=== PATIENT | male | born 1995 | race Caucasian/White ===

== ENCOUNTER 2018-05-25 22:46 | Emergency (ER) | payer BC, SELFPAY ==
[2018-05-25] MEDS ORDERED: CLINDAMYCIN 900MG/D5W 900 MG/50 ML BAG IV ONE (23:02)
[2018-05-25] MEDS ORDERED: TETANUS & DIPHTHERIA TOX,ADULT 0.5 ML VIAL ONE (23:03)
[2018-05-25 23:39] LABS: Absolute Lymphocytes (CBC) 2.4 K/uL (0.7-4.9); Absolute Monocytes 1.2 K/uL (0.1-1.3); Absolute Neutrophil 8.1 K/uL (1.8-8.0); Basophils % 1.2 % (0-1.3); Eosinophils % 3.4 % (0-4.4); Hematocrit 42.5 % (39.6-49.0); Lymphocytes % 19.9 % (15.3-44.8); MCH 30.9 pg (27.0-35.0); MCV 88.1 fL (80-100); MPV 8.5 fL (7.6-11.3); Monocytes % 9.6 % (3.3-12.3); RBC Red Blood Cell Count 4.82 M/uL (4.33-5.43)
[2018-05-25] MEDS ORDERED: FENTANYL CITR 100 MCG/2 ML ONE (23:50)
[2018-05-25 23:57] LABS: BUN Blood Urea Nitrogen 13 mg/dL (7-18); Bicarbonate 27 mmol/L (21-32); Glucose Level 109 mg/dL (74-106); Sodium Level 140 mmol/L (136-145)
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
[2018-05-26 01:04] VITALS: O2SAT 100
[2018-05-26 01:06] VITALS: BP 138/86
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
== END 2018-05-26 01:00 | disposition short-term general hospital (02) ==
LOC: ER 22:46
DX: S02.609A Fracture of mandible, unspecified, initial encounter for closed fracture (principal); W50.0XXA Accidental hit or strike by another person, initial encounter; Y93.89 Activity, other specified; Y92.9 Unspecified place or not applicable; F17.210 Nicotine dependence, cigarettes, uncomplicated; Z23 Encounter for immunization
CPT/HCPCS: 36415; 70486; 80048; 85025; 90714; 99285; J3010

== ENCOUNTER 2020-12-28 11:55 | Emergency (ER) | payer SELFPAY ==
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
--- NOTE | 2020-12-28 12:22 | EDPHYS ---
Physician Documentation [facility] Name: [place] Age: 25 yrs Sex: Male : 1995 Arrival Date: 12/28/2020 Time: 11:56 Bed 6 Private MD: ED Physician Buck Wild HPI: 12/28 12:15 This 25 yrs old Male presents to ER via Law Enforcement with complaints of jairo Suicidal Ideation. 12:15 The patient presents to the emergency department with upset about a ticket. Onset: The jairo symptoms/episode began/occurred just prior to arrival. Past psychiatric history: Prior diagnosis: no previous psychiatric diagnosis known. Severity of symptoms: At their worst the symptoms were mild in the emergency department the symptoms are unchanged. The patient has not experienced similar symptoms in the past. Historical: - Allergies: 12:03 No Known Allergies; ld1 - Home Meds: 12:03 Zoloft 50 mg Oral tab 1 tab once daily [Active]; ld1 - PMHx: 12:03 Bipolar disorder; Depression; ld1 - Immunization history:: Adult Immunizations not up to date. - Social history:: Smoking status: Patient reports the use of cigarette tobacco products, smokes one-half pack cigarettes per day, Patient uses street drugs, Methamphetamine (Meth) Pt reports using meth this morning. States he has been using meth once daily for a year.. ROS: 12:16 Constitutional: Negative for fever, chills, and weight loss, Eyes: Negative for injury, jairo pain, redness, and discharge, ENT: Negative for injury, pain, and discharge, Neck: Negative for injury, pain, and swelling, Cardiovascular: Negative for chest pain, palpitations, and edema, Respiratory: Negative for shortness of breath, cough, wheezing, and pleuritic chest pain, Abdomen/GI: Negative for abdominal pain, nausea, vomiting, diarrhea, and constipation, Back: Negative for injury and pain, : Negative for injury, bleeding, discharge, and swelling, MS/Extremity: Negative for injury and deformity, Skin: Negative for injury, rash, and discoloration, Neuro: Negative for headache, weakness, numbness, tingling, and seizure, Psych: Negative for depression, anxiety, suicide ideation, homicidal ideation, and hallucinations, Allergy/Immunology: Negative for hives, rash, and allergies, Endocrine: Negative for neck swelling, polydipsia, polyuria, polyphagia, and marked weight changes, Hematologic/Lymphatic: Negative for swollen nodes, abnormal bleeding, and unusual bruising. Exam: 12:16 Constitutional: This is a well developed, well nourished patient who is awake, alert, jairo and in no acute distress. Head/Face: Normocephalic, atraumatic. Eyes: Pupils equal round and reactive to light, extra-ocular motions intact. Lids and lashes normal. Conjunctiva and sclera are non-icteric and not injected. Cornea within normal limits. Periorbital areas with no swelling, redness, or edema. ENT: Nares patent. No nasal discharge, no septal abnormalities noted. Tympanic membranes are normal and external auditory canals are clear. Oropharynx with no redness, swelling, or masses, exudates, or evidence of obstruction, uvula midline. Mucous membranes moist. Neck: Trachea midline, no thyromegaly or masses palpated, and no cervical lymphadenopathy. Supple, full range of motion without nuchal rigidity, or vertebral point tenderness. No Meningismus. Chest/axilla: Normal chest wall appearance and motion. Nontender with no deformity. No lesions are appreciated. Cardiovascular: Regular rate and rhythm with a normal S1 and S2. No gallops, murmurs, or rubs. Normal PMI, no JVD. No pulse deficits. Respiratory: Lungs have equal breath sounds bilaterally, clear to auscultation and percussion. No rales, rhonchi or wheezes noted. No increased work of breathing, no retractions or nasal flaring. Abdomen/GI: Soft, non-tender, with normal bowel sounds. No distension or tympany. No guarding or rebound. No evidence of tenderness throughout. Back: No spinal tenderness. No costovertebral tenderness. Full range of motion. Male : Normal genitalia with no discharge or lesions. Skin: Warm, dry with normal turgor. Normal color with no rashes, no lesions, and no evidence of cellulitis. MS/ Extremity: Pulses equal, no cyanosis. Neurovascular intact. Full, normal range of motion. Neuro: Awake and alert, GCS 15, oriented to person, place, time, and situation. Cranial nerves II-XII grossly intact. Motor strength 5/5 in all extremities. Sensory grossly intact. Cerebellar exam normal. Normal gait. Psych: Awake, alert, with orientation to person, place and time. Behavior, mood, and affect are within normal limits. Vital Signs: 11:58 BP 146 / 108; Pulse 101; Resp 18; Temp 98.5(TE); Pulse Ox 99% on R/A; Weight 89.81 kg; ld1 Height 5 ft. 5 in. (165.10 cm); Pain 0/10; 11:58 Body Mass Index 32.95 (89.81 kg, 165.10 cm) ld1 MDM: 11:56 Patient medically screened. jairo Administered Medications: No medications were administered Disposition: 12/28/20 12:21 Discharged to Home. Impression: Bipolar disorder. - Condition is Stable. - Discharge Instructions: Bipolar Disorder. - Medication Reconciliation Form, Thank You Letter, Antibiotic Education, Prescription Opioid Use form. - Follow up: Private Physician; When: 2 - 3 days; Reason: Recheck today's complaints, Continuance of care, Re-evaluation by your physician. Follow up: Carlos Broderick MD; When: 2 - 3 days; Reason: Recheck today's complaints, Re-evaluation by your physician. - Problem is new. - Symptoms have improved. Signatures: Buck Wild MD MD cha Dibbern, Lauren, RN RN ld1 Corrections: (The following items were deleted from the chart) 12:35 12:21 12/28/2020 12:21 Discharged to Home. Impression: Bipolar disorder. Condition is ld1 Stable. Forms are Medication Reconciliation Form, Thank You Letter, Antibiotic Education, Prescription Opioid Use. Follow up: Private Physician; When: 2 - 3 days; Reason: Recheck today's complaints, Continuance of care, Re-evaluation by your physician. Follow up: Carlos Broderick; When: 2 - 3 days; Reason: Recheck today's complaints, Re-evaluation by your physician. Problem is new. Symptoms have improved. jairo
[2020-12-28 12:42] VITALS: BP 146/108; TEMP 98.5; O2SAT 99
== END 2020-12-28 12:35 | disposition home or self-care (01) ==
LOC: ER 11:55
DX: R45.851 Suicidal ideations (principal); F31.9 Bipolar disorder, unspecified; F17.210 Nicotine dependence, cigarettes, uncomplicated
CPT/HCPCS: 99284

== ENCOUNTER 2023-02-06 20:08 | Emergency (ER) | payer SELFPAY ==
--- OUTSIDE RECORDS SUMMARY | 2023-02-06 20:12 | XMS REPORT | Continuity of Care Document ---
:1995 Author Organization [facility] t Address [address] [place] [address] Care Team Providers Name Role Phone Cecile Makayla Attending Clinician Unavailable Payers Payer Name Policy Type Policy Number Effective Date Expiration Date S ource Problems This patient has no known problems. Allergies, Adverse Reactions, Alerts This patient has no known allergies or adverse reactions. Medications This patient has no known medications. Procedures This patient has no known procedures. Encounters Start End Encounter Admission Attending Care Care Encounter Source Date/Time Date/Time Type Type Clinicians Facility Department ID 2022-07-28 Outpatient [facility] [id number] ID 11:[id number] [facility] 2021-09-16 Outpatient [place] [facility] [id number] Common 12:40:11 Makayla [id number] [facility] 2021-09-16 Outpatient [place] [facility] [id number] Common 11:05:10 Makayla [id number] [facility] Results This patient has no known results.
[2023-02-06] MEDS ORDERED: KETOROLAC 30 MG/ML INJ ONE (20:50)
[2023-02-06] MEDS ORDERED: NA CHLORIDE 0.9% 1,000 ML ONE (20:50)
[2023-02-06 21:07] LABS: Absolute Lymphocytes (CBC) 3.8 K/uL (0.7-4.9); Hematocrit 45.1 % (39.6-49.0); Lymphocytes % 27.6 % (15.3-44.8); MPV 8.7 fL (7.6-11.3); RBC Red Blood Cell Count 5.07 M/uL (4.33-5.43)
[2023-02-06 21:09] LABS: Albumin 3.7 g/dL (3.4-5.0); Bilirubin Total 0.5 mg/dL (0.2-1.0); Potassium 3.6 mEq/L (3.5-5.1); Protein, Total 7.5 g/dL (6.4-8.2)
[2023-02-06 21:21] LABS: Specific Gravity 1.029 (1.005-1.030); Urine Bacteria None Seen /HPF (<20); Urine Bilirubin NEGATIVE (Negative); Urine Blood Negative (Negative); Urine Clarity Clear (Clear); Urine Color Yellow (Yellow); Urine Glucose NEGATIVE (Negative); Urine Mucus 1+ /HPF (None Seen); Urine Protein TRACE (Negative); Urine RBC <5 /HPF (None Seen); Urine Urobilinogen Normal (Normal); Urine pH 5.5 (5.0-7.0)
--- NOTE | 2023-02-06 22:01 | RAD REPORT ---
EXAM DESCRIPTION: CT - Abdomen Pelvis W Contrast - 02/06/2023 9:34 pm CLINICAL HISTORY: right lower abdomen pain COMPARISON: No comparisons TECHNIQUE: Thin cut axial CT imaging of the abdomen and pelvis was performed following intravenous a dministration of 95 mL Isovue 300. Multiplanar reformats were generated and reviewed. All CT scans are performed using dose optimization technique as appropriate and may include automated exposure control or mA/KV adjustment according to patient size. FINDINGS: No suspicious findings in the lung bases. The liver demonstrates diffuse parenchymal hypoattenuation suggesting steatosis. Adrenal glands, sple en, and pancreas show no suspicious findings. Gallbladder and biliary tree are also without suspiciou s finding. Symmetric renal function is seen with no hydronephrosis or suspicious renal mass. No dilated bowel loops or bowel wall thickening. No free air or loculated fluid collections. Left ing uinal hernia containing fat and small volume fluid. Fat stranding along the hernia content, which ext ends into the left lower quadrant. Trace amount of free fluid layering in the pelvis. No suspicious m ass or bulky lymphadenopathy. The urinary bladder is suboptimally distended. No suspicious bony findings. IMPRESSION: Left inguinal hernia containing fat and small volume fluid, with mild fat stranding that extends into the left lower quadrant. Trace free fluid is also seen in the pelvis. This could relate to strangulation of the hernia in the appropriate clinical setting. Please correlate clinically. Other incidental findings as above.
[2023-02-06] MEDS ORDERED: TRAMADOL HCL 50 MG TAB ONE (22:49)
[2023-02-06] MEDS ORDERED: PROMETHAZINE 25 MG TABLET ONE (22:49)
[2023-02-06] MEDS ORDERED: POTASSIUM CL SA 10 MEQ TAB PO ONE (22:50)
--- NOTE | 2023-02-06 22:52 | EDPHYS ---
Physician Documentation [facility] Name: [place] Age: 28 yrs Sex: Male : 1995 Arrival Date: 02/06/2023 Time: 20:08 Bed 7 Private MD: ED Physician Maximiliano Birmingham HPI: 02/06 21:00 This 28 yrs old Male presents to ER via Ambulatory with complaints of Hernia, Ear Pain. cp 21:00 The patient presents with abdominal pain right lower quadrant, right mid abdomen. cp 21:00 Onset: The symptoms/episode began/occurred yesterday. Associated signs and symptoms: cp Pertinent positives: bilateral ear pain. Patient reports he has HX of left side inguinal hernia for the past 5 years. Presents to ED today with concern for ear infection and pain, right side abdomen pain with concern for new hernia. Historical: - PMHx: 20:24 Bipolar disorder; Depression; kd3 - Immunization history:: Adult Immunizations up to date. - Social history:: Smoking status: Patient reports the use of cigarette tobacco products, smokes one pack cigarettes per day. ROS: 21:05 Constitutional: Negative for body aches, chills, fever, poor PO intake. cp 21:05 Eyes: Negative for injury, pain, redness, and discharge. cp 21:05 ENT: Positive for ear pain, Negative for sore throat, difficulty swallowing, difficulty handling secretions. 21:05 Cardiovascular: Negative for chest pain, palpitations. 21:05 Respiratory: Negative for cough, shortness of breath, wheezing. 21:05 Abdomen/GI: Positive for abdominal pain, of the right mid and right lower abdomen, Negative for vomiting, diarrhea, constipation. 21:05 : Negative for urinary symptoms, testicular pain 21:05 Neuro: Negative for altered mental status, dizziness, headache, weakness. 21:05 All other systems are negative. Exam: 21:10 Constitutional: The patient appears in no acute distress, alert, awake, non-toxic, well cp developed, well nourished, obese. 21:10 Head/Face: Normocephalic, atraumatic. cp 21:10 Eyes: Periorbital structures: appear normal, Conjunctiva: normal, no exudate, no injection, Sclera: no appreciated abnormality, Lids and lashes: appear normal, bilaterally. 21:10 ENT: External ear(s): are unremarkable, Ear canal(s): are normal, clear, TM's: erythema, that is moderate, bilaterally, Nose: is normal, Mouth: Lips: moist, Oral mucosa: pink and intact, moist, Posterior pharynx: is normal, airway is patent, no erythema, no exudate. 21:10 Neck: ROM/movement: is normal, is supple, without pain, no range of motions limitations, no meningismus, no nuchal rigidity. 21:10 Chest/axilla: Inspection: normal. 21:10 Cardiovascular: Rate: normal, Rhythm: regular. 21:10 Respiratory: the patient does not display signs of respiratory distress, Respirations: normal, no use of accessory muscles, no retractions, labored breathing, is not present, Breath sounds: are clear throughout, no decreased breath sounds, no stridor, no wheezing. 21:10 Abdomen/GI: Inspection: obese Bowel sounds: active, all quadrants, Palpation: soft, in all quadrants, moderate abdominal tenderness, in the right lower quadrant, rebound tenderness, is not appreciated. 21:10 Back: pain, is absent, ROM is normal. 21:10 Skin: no rash present. 21:10 Neuro: Orientation: to person, place \T\ time. Mentation: is normal, Motor: moves all fours, strength is normal, Sensation: is normal, Gait: is steady, at a normal pace, without difficulty. Vital Signs: 20:24 BP 152 / 93; Pulse 92; Resp 20 S; Temp 97.9; Pulse Ox 95% on R/A; Weight 97.52 kg; ha1 Height 5 ft. 5 in. ; 21:45 BP 127 / 84; Pulse 92; Resp 17; Pulse Ox 96% on R/A; ll3 22:25 BP 126 / 79; Pulse 86; Resp 18 S; Pulse Ox 97% on R/A; ha1 20:24 Body Mass Index 35.78 (97.52 kg, 165.1 cm) ha1 MDM: 20:23 Patient medically screened. cp 21:00 Differential diagnosis: appendicitis, cholecystitis, Cholelithiasis, diverticulitis, cp gastritis, Mesenteric ischemia or infarction, non-specific abd pain, Pyelonephritis, Ureterolithiasis, urinary tract infection. 22:51 Data reviewed: vital signs, nurses notes, lab test result(s), radiologic studies, CT cp scan. 22:51 I considered the following discharge prescriptions or medication management in the emergency department Medications were administered in the Emergency Department. See MAR. Counseling: I had a detailed discussion with the patient and/or guardian regarding: the historical points, exam findings, and any diagnostic results supporting the discharge/admit diagnosis, lab results, radiology results, the need for outpatient follow up, for definitive care, a general surgeon, to return to the emergency department if symptoms worsen or persist or if there are any questions or concerns that arise at home. Response to treatment: the patient's symptoms have markedly improved after treatment, and as a result, I will discharge patient. Special discussion: Based on the patient's Hx, exam, and Dx evaluation, there is no indication for emergent surgery or inpatient Tx. It is understood by the patient/guardian that if the Sx's persist or worsen they need to return immediately for re-evaluation. 02/06 20:29 Order name: CBC with Diff; Complete Time: 22:13 02/06 22:15 Interpretation: Normal except: WBC 13.80; EOSINOPHIL % 4.5; MNA 1.5; EOSA 0.6. 02/06 20:29 Order name: CMP; Complete Time: 22:13 02/06 22:47 Interpretation: Normal except: CL 109. 02/06 20:29 Order name: Lipase; Complete Time: 22:13 02/06 20:29 Order name: Urinalysis w/ reflexes; Complete Time: 22:13 02/06 20:29 Order name: CT Abd/Pelvis - IV Contrast Only; Complete Time: 22:13 02/06 22:48 Interpretation: Report reviewed. 02/06 20:29 Order name: IV Saline Lock; Complete Time: 20:38 02/06 20:29 Order name: Labs collected and sent; Complete Time: 20:38 cp Administered Medications: 20:49 Drug: Ketorolac IVP 15 mg Route: IVP; Site: right antecubital; ha1 21:25 Follow up: Response: No adverse reaction; Pain is decreased ha1 20:50 Drug: NS 0.9% IV 1000 ml Route: IV; Rate: 1 bolus; Site: right antecubital; ha1 22:53 Follow up: Response: No adverse reaction; IV Status: Completed infusion; IV Intake: ha1 1000ml 23:00 Drug: Amoxicillin-Clavulanate PO 875 mg Route: PO; ll3 23:05 Follow up: Response: Medication administered at discharge. 3 Disposition: 02/07 07:31 Co-signature as Attending Physician, Maximiliano Birmingham MD I agree with the assessment sp4 and plan of care. I reviewed the patient's care provided by the Advanced Practice Provider and agree with the diagnosis and treatment plan. Disposition Summary: 02/06/23 22:52 Discharge Ordered Location: Home cp Problem: new cp Symptoms: have improved cp Condition: Stable cp Diagnosis - Abdominal pain, unspecified cp - Unilateral inguinal hernia, without obstruction or gangrene - left cp - Otitis media, unspecified, bilateral cp Followup: cp - With: Sven White MD - When: 2 - 3 days - Reason: hernia repair Discharge Instructions: - Discharge Summary Sheet cp - Abdominal Pain, Adult cp - Otitis Media, Adult cp - Inguinal Hernia, Adult cp Forms: - Medication Reconciliation Form cp - Thank You Letter cp - Antibiotic Education cp - Prescription Opioid Use cp Prescriptions: - Augmentin 875-125 mg Oral Tablet - take 1 tablet by ORAL route every 12 hours for 10 days; 20 tablet; Refills: 0, cp Product Selection Permitted - Ibuprofen 800 mg Oral Tablet - take 1 tablet by ORAL route every 8 hours As needed take with food; 30 tablet; cp Refills: 0, Product Selection Permitted Signatures: Dispatcher [employer] EDBuck Savage PA PA cp Matias Lowry RN RN ll3 Macy Young RN RN kd3 Isabelle Mckeon RN RN ha1 Potepalov, Sergey, MD MD sp4
--- NOTE | 2023-02-06 22:52 | ER ---
Nurse's Notes [facility] Name: [place] Age: 28 yrs Sex: Male : 1995 Arrival Date: 02/06/2023 Time: 20:08 Bed 7 Private MD: Diagnosis: Abdominal pain, unspecified;Unilateral inguinal hernia, without obstruction or gangrene-left;Otitis media, unspecified, bilateral Presentation: 02/06 20:22 Chief complaint: Patient states: I am having a lot of pain. I feel like I have had kd3 drainage coming out of both of my ears with dizziness and blurred vision for about 2 days. I have been pouring peroxide in my ears to try and get it to be better but it isn't going away. And i just found out that i have hernia's. One in my groin and one in my abdomen. I looked up the symptoms and i have had them for about 5 years. Coronavirus screen: Vaccine status: Patient reports receiving the 2nd dose of the covid vaccine. Ebola Screen: No symptoms or risks identified at this time. Initial Sepsis Screen: Does the patient meet any 2 criteria? No. Patient's initial sepsis screen is negative. Does the patient have a suspected source of infection? No. Patient's initial sepsis screen is negative. Risk Assessment: Do you want to hurt yourself or someone else? Patient reports no desire to harm self or others. Onset of symptoms was February 06, 2023. 20:22 Method Of Arrival: Ambulatory kd3 20:22 Acuity: FALGUNI 3 kd3 Triage Assessment: 20:24 General: Appears in no apparent distress. Behavior is calm, cooperative. Pain: kd3 Complains of pain in right ear, left ear and abdomen. EENT: Reports pain in left ear and right ear. Historical: - PMHx: 20:24 Bipolar disorder; Depression; kd3 - Immunization history:: Adult Immunizations up to date. - Social history:: Smoking status: Patient reports the use of cigarette tobacco products, smokes one pack cigarettes per day. Screenin:19 [facility] ED Fall Risk Assessment (Adult) History of falling in the last 3 months, ha1 including since admission No falls in past 3 months (0 pts) Confusion or Disorientation No (0 pts) Intoxicated or Sedated No (0 pts) Impaired Gait No (0 pts) Mobility Assist Device Used No (0 pt) Altered Elimination No (0 pt) Score/Fall Risk Level 0 - 2 = Low Risk Oriented to surroundings, Maintained a safe environment, Educated pt \T\ family on fall prevention, incl call for assistance when getting out of bed, Hourly rounding (assess needs \T\ fall precautionary measures) done. 20:27 Abuse screen: Denies threats or abuse. Denies injuries from another. Nutritional ha1 screening: No deficits noted. Tuberculosis screening: No symptoms or risk factors identified. Assessment: 20:25 General: Appears uncomfortable, Behavior is calm, cooperative. Pain: Complains of pain ha1 in bilateral ear Pain does not radiate. Pain currently is 7 out of 10 on a pain scale. Quality of pain is described as throbbing. Neuro: Level of Consciousness is awake, alert, obeys commands, Oriented to person, place, time, situation. Cardiovascular: Patient's skin is warm and dry. Respiratory: Airway is patent Respiratory effort is even, unlabored, Respiratory pattern is regular, symmetrical. GI: Abdomen is round non-distended, Reports pain on the right lower quadrant due to a possible hernia. : No signs and/or symptoms were reported regarding the genitourinary system. EENT: Ear canal w/ drainage noted from right ear. Derm: Skin is pink, warm \T\ dry. Musculoskeletal: Circulation, motion, and sensation intact. Range of motion: intact in all extremities. 21:25 Reassessment: Patient and/or family updated on plan of care and expected duration. Pain ha1 level reassessed. Patient is alert, oriented x 3, equal unlabored respirations, skin warm/dry/pink. 22:25 Reassessment: Patient and/or family updated on plan of care and expected duration. Pain ha1 level reassessed. Patient is alert, oriented x 3, equal unlabored respirations, skin warm/dry/pink. Patient states symptoms have improved. Vital Signs: 20:24 BP 152 / 93; Pulse 92; Resp 20 S; Temp 97.9; Pulse Ox 95% on R/A; Weight 97.52 kg; ha1 Height 5 ft. 5 in. ; 21:45 BP 127 / 84; Pulse 92; Resp 17; Pulse Ox 96% on R/A; ll3 22:25 BP 126 / 79; Pulse 86; Resp 18 S; Pulse Ox 97% on R/A; ha1 20:24 Body Mass Index 35.78 (97.52 kg, 165.1 cm) ha1 ED Course: 20:11 Patient arrived in ED. ja2 20:16 Buck Vyas PA is PHCP. cp 20:16 Maximiliano Birmingham MD is Attending Physician. cp 20:19 Patient has correct armband on for positive identification. Bed in low position. Call ha1 light in reach. Side rails up X 1. 20:24 Triage completed. kd3 20:25 Arm band placed on right wrist. kd3 20:38 CBC with Diff Sent. ha1 20:38 CMP Sent. ha1 20:39 Lipase Sent. ha1 21:36 CT Abd/Pelvis - IV Contrast Only In Process Unspecified. EDMS 22:51 Sven White MD is Referral Physician. cp 23:06 No provider procedures requiring assistance completed. IV discontinued, intact, ll3 bleeding controlled, No redness/swelling at site. Pressure dressing applied. Administered Medications: 20:49 Drug: Ketorolac IVP 15 mg Route: IVP; Site: right antecubital; ha1 21:25 Follow up: Response: No adverse reaction; Pain is decreased ha1 20:50 Drug: NS 0.9% IV 1000 ml Route: IV; Rate: 1 bolus; Site: right antecubital; ha1 22:53 Follow up: Response: No adverse reaction; IV Status: Completed infusion; IV Intake: ha1 1000ml 23:00 Drug: Amoxicillin-Clavulanate PO 875 mg Route: PO; ll3 23:05 Follow up: Response: Medication administered at discharge. ll3 Medication: 23:06 VIS not applicable for this client. ll3 Intake: 22:53 IV: 1000ml; Total: 1000ml. ha1 Outcome: 22:52 Discharge ordered by . cp 23:06 Discharged to home ambulatory. ll3 23:06 Condition: stable 23:06 Discharge instructions given to patient, Instructed on discharge instructions, follow up and referral plans. medication usage, Demonstrated understanding of instructions, follow-up care, medications, Prescriptions given X 2. 23:06 Patient left the ED. ll3 Signatures: Dispatcher [employer] EDMO Buck Vyas PA PA cp Alexander, Jessica ja2 Loubet, Lynsea, RN RN ll3 Macy Young RN RN kd3 Isabelle Mckeon, HECTOR RN ha1 Corrections: (The following items were deleted from the chart) 20:25 20:24 BP 152 / 93; Pulse 110bpm; Resp 20bpm; Spontaneous; Pulse Ox 95% RA; Temp 97.9F; ha1 97.52 kg; Height 5 ft. 5 in.; BMI: 35.7; ha1
[2023-02-06] MEDS ORDERED: AMOX/K CLAV 875 MG TAB ONE (23:06)
[2023-02-06 23:12] VITALS: TEMP 97.9
[2023-02-06 23:15] VITALS: BP 126/79; O2SAT 97
== END 2023-02-06 23:06 | disposition home or self-care (01) ==
LOC: ER 20:08
DX: K40.90 Unilateral inguinal hernia, without obstruction or gangrene, not specified as recurrent (principal); H66.93 Otitis media, unspecified, bilateral
CPT/HCPCS: 36415; 74177; 80053; 81001; 83690; 85025; 96361; 96374; 99284; J7030; Q0169; Q9967

== ENCOUNTER 2023-02-25 07:32 | Day surgery (SDC) | payer OTHER, SELFPAY ==
[2023-02-25] MEDS ORDERED: Ringers Lactate 1,000 ML IV ONE (08:05)
[2023-02-25] MEDS ORDERED: CEFAZOLIN SODIUM 2 GM/VIAL ONE (08:05)
[2023-02-25] MEDS ORDERED: LIDOCAINE HCL/EPINEPHRINE 20 ML MDV ONE (08:52)
[2023-02-25] MEDS ORDERED: BUPIVACAINE 0.25% PF 30 ML VIAL ONE (08:52)
[2023-02-25] MEDS ORDERED: FENTANYL CITR 100 MCG/2 ML ONE ×2 (09:37→10:16)
[2023-02-25] MEDS ORDERED: KETOROLAC 30 MG/ML INJ ONE (09:37)
[2023-02-25] MEDS ORDERED: ONDANSETRON 4 MG/2 ML VIAL ONE (09:37)
[2023-02-25] MEDS ORDERED: MIDAZOLAM HCL 2 MG/2 ML INJ ONE (09:37)
[2023-02-25] MEDS ORDERED: LIDOCAINE 2% MPF 5 ML VIAL ONE (09:37)
[2023-02-25] MEDS ORDERED: dexAMETHasone 10 MG/ML VIAL ONE (09:37)
[2023-02-25] MEDS ORDERED: propofoL 200 MG/20 ML VIAL IV ONE (09:39)
[2023-02-25] MEDS ORDERED: Phenylephrine HCl 10 MG/ML 1 ML VIAL ONE (11:28)
[2023-02-25] MEDS ORDERED: GLYCOPYRROLATE 0.2 MG/ML SYR ONE (11:29)
[2023-02-25] MEDS ORDERED: NS 0.9% VIAL 10 ML ONE (11:29)
--- NOTE | 2023-02-25 11:35 | P.OP ---
Preoperative diagnosis: LEFT inguinal hernia Postoperative diagnosis: LEFT inguinal hernia Primary procedure: Open LEFT inguinal hernia repair with mesh Anesthesia: GETA Local Estimated blood loss: ~ 5cc Specimen: Hernia Sack Findings: hernia sac to scrotum, thick vas, scarred cord structures Complications: None Implants: Bard Medium Perfix Plug and Patch Hernia System Transferred to: Recovery Room Condition: Good
[2023-02-25] MEDS ORDERED: HYDROCODONE/APAP 10/325 TAB ONE (12:54)
[2023-02-25 13:46] VITALS: BP 114/74; TEMP 97.2; O2SAT 100
--- NOTE | 2023-02-26 00:12 | OP ---
Date of Procedure: 02/25/2023 Surgeon: Lencho Faustin MD, Preoperative Diagnosis: Left inguinal hernia. Postoperative Diagnosis: Left inguinal hernia. Procedure Performed: Open left inguinal hernia repair with mesh. Anesthesia: General endotracheal plus local with 0.25% Marcaine. Estimated Blood Loss: Less than 5 cc. Specimen: Hernia sac. Findings: 1.Extensive indirect hernia extending down along the spermatic cord structures, extending all the wa y up to the scrotum and testicle. 2.Significant scar tissue between the vas deferens and the spermatic cord structures. 3.Significantly thickened vas deferens and its entire length palpable. 4.Incarcerated omental tissue extending all the way through the hernia sac to the level of the scrot um. 5.Hernia sac had multiple small outpouchings and was bilobed around the spermatic cord structures. Complications: None immediate. Implants: Bard medium PerFix plug and patch hernia repair system. Disposition: The patient was transferred to the recovery room in good condition. Procedure In Detail: After informed consent was obtained from the patient preoperatively, I had disc ussed the risks, benefits, and alternatives to repair his left inguinal hernia, what the patient stat es he had had for multiple years prior to his presentation. He states that the hernia continued to g et larger and worsening pain extending to the scrotum with pain in the leg area, scrotal area, and le ft abdomen with burning sensation at times in the inguinal region. The bulge got significantly bigge r and as such, he opted for surgical intervention. I had seen the patient in the morning and discuss ed the risks, benefits, and alternatives of the open inguinal hernia repair including, but not limite d to, bleeding, infection, damage to surrounding tissues, need for further operation procedures, trou ble with mesh, testicular loss, sexual dysfunction, urinary retention, trouble in the perioperative p eriod with related anesthesia, heart attack, strokes, blood clots, and other unforeseen complications in the perioperative period. The patient agreed to proceed as indicated. Procedure In Detail: The patient was prepped and draped in the usual sterile fashion. After adequat e anesthesia was achieved, I made a linear incision down to the left pubic region down to subcutaneou s tissues. After appropriately anesthetizing the skin with a 15 blade, I dissected through the subcu taneous tissues down to Camper's fat. I used electrocautery to dissect down through Camper's fat and Cris's fascia to expose the external oblique aponeurosis. This was opened sharply with a 15 blade and opened in its entirety using Metzenbaum scissors. Spermatic cord and structures were noted at t his time to be in close apposition to the hernia sac. It was emanating from the medial aspect, consi stent with indirect inguinal hernia. Encircling the spermatic cord and structures were quite challen ging as the hernia sac extended all the way down into the scrotum. There was significant thickened s car tissue between the hernia sac and the spermatic cord and structures. I encircled all the structu res at this point, including the spermatic cord and structures and began dissecting free the hernia s ac from the spermatic cord and structures with meticulous dissection using predominantly sharp dissec tion with intermittent use of minimal electrocautery. I continued to dissect off the spermatic cord and structures and palpated the spermatic cord and structures including the vascular supply and the v as deferens. The vas deferens was found to be quite thickened and fibrotic extending all the way fro m the superior aspect of the testicle which was palpated, all the way back to the deep inguinal ring. At this point, the dissection continued down to separate the hernia sac from the spermatic cord and structures. At this point, I opened the hernia sac and returned significant amount of intraperitone al adipose tissue consistent with omentum into the normal anatomic preperitoneal space. At this poin t, I sized the hernia defect in the deep inguinal ring and brought the medium Bard PerFix plug and pa tch repair system, hydrated it appropriately, secured in a parachute-type fashion, 2-0 PDS sutures an d placed in the preperitoneal space. At this point, I secured it to the ring using 3 interrupted 2-0 PDS sutures around the ring of the deep inguinal ring. I then closed the site. I then ligated the hernia sac and sent it off for pathologic examination. I then closed the hernia sac using interrupte d 3-0 Vicryl sutures over the top of the repair. At this point, the area was copiously irrigated. T he hernia was repaired at this point with the plug. I then inspected the area once again, the testic le was inspected at this point and appeared well vascularized at this time without any other findings . I, at this point, irrigated the area once again. No hemostat was required. I sized the hernia pa tc by trimming it appropriately and placed it on the floor of the inguinal canal, securing it medial ly on the pubic tubercle and to the internal oblique aponeurosis and the undersurface of the inguinal ligament. At this point, I trimmed the mesh appropriately and the spermatic cord and structures wer e palpated once again, ensuring the ring was not too tight at the deep inguinal ring. I then irrigat ed the area once again and closed the external oblique aponeurosis using a running 3-0 Vicryl suture. Good apposition of the tissues. I then closed the Camper's fat and Cris's fascia using interrupt ed 3-0 Vicryl sutures after irrigating once again, in an interrupted fashion. I then closed the deep dermal plane using the same said 3 Vicryl sutures in interrupted fashion. The subcuticular layer wa s closed using a 4-0 Monocryl in a running fashion. Dermabond was placed over top. The patient nora rated the procedure well without evidence of complication and transferred to PACU in good condition. All counts were correct at the end of the case. EVON/MICHELLE Voice ID: [id number] Report ID: [id number]
== END 2023-02-25 12:55 | disposition home or self-care (01) ==
LOC: OR 07:32
PROVIDERS: ATTEND Surgery
PROC: 0YU60JZ Supplement Left Inguinal Region with Synthetic Substitute, Open Approach (ICD-10-PCS; principal; 2023-02-25 10:45)
DX: K40.30 Unilateral inguinal hernia, with obstruction, without gangrene, not specified as recurrent (principal)
CPT/HCPCS: 88302; 49505; A4216; J2704; J2370; J2001; J2250; J3010 ×2; J1100; J2405; J7120

== ENCOUNTER 2023-03-01 10:50 | Emergency (ER) | payer OTHER ==
--- OUTSIDE RECORDS SUMMARY | 2023-03-01 10:53 | XMS REPORT | Continuity of Care Document ---
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 Allergies, Adverse Reactions, Alerts This patient has no known allergies or adverse reactions. Social History Social Habit Start Date Stop Date Quantity Comments Source Gender identity Cherelle abdul - External Sexual orientation Cherelle Grimes - External History of tobacco Cigarette Smoker Cherelle Grimes use - External History of Social 2023-02-14 2023-02-14 Cherelle Grimes function 00:00:00 00:00:00 - External Cigarettes smoked 2023-02-14 2023-02-14 Cherelle Grimes current (pack per 00:00:00 00:00:00 - Exter nal day) - Reported Cigarette 2023-02-14 2023-02-14 Cherelle Grimes pack-years 00:00:00 00:00:00 - External Tobacco use and 2023-02-14 2023-02-14 Smokeless tobacco Osmani Grimes exposure 00:00:00 00:00:00 non-user - External Alcohol intake 2023-02-14 2023-02-14 Ex-drinker Cherelle hays 00:00:00 00:00:00 (finding) - External Sex Ass[birth year] At [birth year] Cherelle abdul 00:00:00 00:00:00 - External Smoking Status Start Date Stop Date Source Smokes tobacco daily 2023-02-14 00:00:00 Cherelle Grimes - External Medications Ordered Filled Start Stop Current Ordering Indication Dosage Frequency Signature Comments Components Source Medication Medication Date Date Medication? Clinician (SIG) Name Name Ibuprofen Yes [id number] TAKE 1 Osmani lsey (MOTRIN) 02-14 TABLET BY Seybol d 800 MG oral 00:00: MOUTH - Tablet 00 EVERY 8 Externa HOURS l NEEDED FOR PAIN WITH FOOD Ibuprofen No TAKE 1 Kelse y (MOTRIN) 619 02-14 TABLET BY Seybo ld 800 MG oral 00:00: 00:00 MOUTH - Tablet 00 :00 EVERY 8 Externa HOURS l NEEDED FOR PAIN WITH FOOD Vital Signs Vital Name Observation Time Observation Value Comments Source Systolic blood 2023-02-14 15:57:00 136 mm[Hg] Cherelle Eddyybold - pressure External Diastolic blood 2023-02-14 15:57:00 79 mm[Hg] Jeffrey abraham Seybold - pressure External Heart rate 2023-02-14 15:57:00 86 /min Cherelle prattbowaylon - External Body temperature 2023-02-14 15:57:00 37.06 Latasha Cherie pratt Seybliana - External Respiratory rate 2023-02-14 15:57:00 14 /min Cherie pratt Seybold - External Body height 2023-02-14 15:57:00 165.1 cm Cherelle prattbowaylon - External Body weight 2023-02-14 15:57:00 99.791 kg Cherelle prattbowaylon - External BMI 2023-02-14 15:57:00 36.61 kg/m2 Cherelle prattbowaylon - External Oxygen saturation in 2023-02-14 15:57:00 99 /min Cherelle Grimes - Arterial blood by External Pulse oximetry Procedures This patient has no known procedures. Encounters Start End Encounter Admission Attending Care Care Encounter Source Date/Time Date/Time Type Type Clinicians Facility Department ID 2022-07-28 Outpatient [facility] [id number] [place] 11:21:12 [id number] [facility] 2021-09-16 Outpatient ARELI Huber [facility] [id number] [place] 12:40:11 Makayla [id number] 2021-09-[address] CecileSLY [facility] [id number] Common 11:05:10 Makayla [id number] 2023-03-09 2023-03-09 Outpatient CHERELLE HERNANDEZ [id number] Cherelle 10:00:00 10:00:00 WILL hoyt 2023-02-14 2023-02-14 Outpatient CHERELLE GREY [id number] Cherelle 11:15:00 11:15:00 NIKKI hoyt Results This patient has no known results.
[2023-03-01 11:14] LABS: Absolute Lymphocytes (CBC) 3.3 K/uL (0.7-4.9); Lymphocytes % 18.8 % (15.3-44.8); MPV 8.7 fL (7.6-11.3); RBC Red Blood Cell Count 5.34 M/uL (4.33-5.43)
[2023-03-01 11:31] LABS: Potassium 3.8 mEq/L (3.5-5.1)
[2023-03-01] MEDS ORDERED: NA CHLORIDE 0.9% 1,000 ML ONE (11:58)
--- NOTE | 2023-03-01 12:33 | RAD REPORT ---
EXAM DESCRIPTION: US - Scrotum Testicles - 03/01/2023 12:07 pm CLINICAL HISTORY: testicular pain Pain and swelling. COMPARISON: PELVIS dated 09/21/2012 FINDINGS: The right testicle 4.4 x 2.7 x 2.1 cm. No intratesticular masses or evidence of testicular torsion. The left testicle 3.5 x 3.3 x 2.7 cm.. No intratesticular masses or evidence of testicular torsion. Both epididymides are normal in size and appearance. Mild bilateral scrotal fluid. Significant scrotal edema. IMPRESSION: No acute testicular finding. Mild scrotal edema is noted.
[2023-03-01 12:47] LABS: Albumin 3.5 g/dL (3.4-5.0); Bilirubin Direct 0.2 mg/dL (0-0.2); Bilirubin Indirect, Calculated 0.6 mg/dL (0.2-0.8); Bilirubin Total 0.8 mg/dL (0.2-1.0); Protein, Total 7.8 g/dL (6.4-8.2)
[2023-03-01 12:51] LABS: Protime INR 0.99
--- NOTE | 2023-03-01 13:29 | ER ---
Nurse's Notes [facility] Name: [place] Age: 28 yrs Sex: Male : 1995 Arrival Date: 03/01/2023 Time: 10:50 Bed 4 Private MD: Diagnosis: Left testicular pain;Scrotal swelling;Scrotal contusion Presentation: 03/01 10:53 Chief complaint: Patient states: L testicular swelling and bruising that began after ss hernia repair surgery on Tuesday. Coronavirus screen: Client denies travel out of the [place] in the last 14 days. Ebola Screen: Patient denies exposure to infectious person. Patient denies travel to an Ebola-affected area in the 21 days before illness onset. Initial Sepsis Screen: Does the patient meet any 2 criteria? No. Patient's initial sepsis screen is negative. Does the patient have a suspected source of infection? No. Patient's initial sepsis screen is negative. Risk Assessment: Do you want to hurt yourself or someone else? Patient reports no desire to harm self or others. Onset of symptoms was February 28, 2023. 10:53 Method Of Arrival: EMS: [facility] 10:53 Acuity: FALGUNI 3 ss Historical: - Allergies: 11:00 No Known Allergies; ss - Home Meds: 11:00 None [Active]; ss - PMHx: 11:00 Bipolar disorder; Depression; ss - PSHx: 11:00 Hernia repair; ss - Immunization history:: Client reports receiving the 2nd dose of the Covid vaccine. - Social history:: Smoking status: Patient reports the use of cigarette tobacco products, smokes one-half pack cigarettes per day. Screenin:11 [facility] ED Fall Risk Assessment (Adult) History of falling in the last 3 months, kc6 including since admission No falls in past 3 months (0 pts) Confusion or Disorientation No (0 pts) Intoxicated or Sedated No (0 pts) Impaired Gait No (0 pts) Mobility Assist Device Used No (0 pt) Altered Elimination No (0 pt) Score/Fall Risk Level 0 - 2 = Low Risk Oriented to surroundings, Maintained a safe environment, Educated pt \T\ family on fall prevention, incl call for assistance when getting out of bed, Assessed \T\ reinforced patient's understanding of fall precautions, Hourly rounding (assess needs \T\ fall precautionary measures) done. Abuse screen: Denies threats or abuse. Denies injuries from another. Nutritional screening: No deficits noted. Tuberculosis screening: No symptoms or risk factors identified. Assessment: 11:10 General: Appears in no apparent distress. comfortable, Behavior is calm, cooperative, kc6 appropriate for age. Pain: Complains of pain in left testicle Pain currently is 6 out of 10 on a pain scale. Neuro: Level of Consciousness is awake, alert, obeys commands, Oriented to person, place, time, situation, Appropriate for age. Cardiovascular: Capillary refill < 3 seconds. Respiratory: Airway is patent Trachea midline Respiratory effort is even, unlabored, Respiratory pattern is regular, symmetrical. GI: No signs and/or symptoms were reported involving the gastrointestinal system. : No signs and/or symptoms were reported regarding the genitourinary system. Derm: No signs and/or symptoms reported regarding the dermatologic system. Skin is intact, is healthy with good turgor, Skin is pink, warm \T\ dry. 12:10 Reassessment: Patient appears in no apparent distress at this time. No changes from kc6 previously documented assessment. Patient and/or family updated on plan of care and expected duration. Pain level reassessed. Patient is alert, oriented x 3, equal unlabored respirations, skin warm/dry/pink. Vital Signs: 10:53 BP 144 / 98; Pulse 106; Resp 16; Temp 97.9; Pulse Ox 98% on R/A; Weight 95.25 kg; ss Height 5 ft. 5 in. ; Pain 7/10; 12:24 BP 129 / 91; Pulse 91; Resp 16 S; Pulse Ox 99% on R/A; Pain 5/10; kc6 10:53 Body Mass Index 34.95 (95.25 kg, 165.1 cm) ss 10:53 Pain Scale: Adult ss 12:24 Pain Scale: Adult kc6 ED Course: 10:52 Patient arrived in ED. ss 10:52 Hunter Cam DO is Attending Physician. ms3 11:00 Triage completed. ss 11:00 Arm band placed on right wrist. ss 11:09 Adriane Ni, HECTOR is Primary Nurse. kc6 11:10 BMP Sent. kc6 11:10 CBC with Diff Sent. kc6 11:10 Inserted saline lock: 20 gauge in right wrist, using aseptic technique. Blood collected.kc6 11:11 Patient has correct armband on for positive identification. Placed in gown. Bed in low kc6 position. Call light in reach. Side rails up X 1. 12:05 Scrotum Testicles US In Process Unspecified. EDMS 12:23 Inserted saline lock: 20 gauge in left antecubital area, using aseptic technique. Blood kc6 collected. 13:28 Lencho Faustin MD is Referral Physician. ms3 14:19 No provider procedures requiring assistance completed. IV discontinued, intact, ss bleeding controlled, No redness/swelling at site. Pressure dressing applied. Administered Medications: 12:23 Drug: NS 0.9% IV 1000 ml Route: IV; Rate: 1000 ml; Site: left antecubital; kc6 Outcome: 13:29 Discharge ordered by . ms3 14:19 Discharged to home ambulatory. ss 14:19 Condition: good 14:19 Discharge instructions given to patient, family, Instructed on discharge instructions, follow up and referral plans. medication usage, Demonstrated understanding of instructions, follow-up care, medications, Prescriptions given X 2. 14:19 Patient left the ED. ss Signatures: Dispatcher [employer] EDMS Estee Juarez, RN RN ss Hunter Cam DO DO ms3 Adriane Ni, RN RN kc6
--- NOTE | 2023-03-01 13:30 | EDPHYS ---
Physician Documentation [facility] Name: [place] Vivas Age: 28 yrs Sex: Male : 1995 Arrival Date: 03/01/2023 Time: 10:50 Bed 4 Private MD: ED Physician Hunter Cam HPI: 03/01 11:06 This 28 yrs old Male presents to ER via EMS with complaints of Testicular Swelling. ms3 11:06 28-year-old male with past medical history of bipolar, depression presents for scrotal ms3 swelling and testicular pain. Patient notes he did have inguinal hernia surgery on Tuesday with Dr. Faustin. Patient states his pain is a 02/28. Patient denies alleviating or inciting factors. Patient states he had subjective fevers overnight.. Historical: - Allergies: 11:00 No Known Allergies; ss - Home Meds: 11:00 None [Active]; ss - PMHx: 11:00 Bipolar disorder; Depression; ss - PSHx: 11:00 Hernia repair; ss - Immunization history:: Client reports receiving the 2nd dose of the Covid vaccine. - Social history:: Smoking status: Patient reports the use of cigarette tobacco products, smokes one-half pack cigarettes per day. ROS: 11:06 Neck: Negative for injury, pain, and swelling, Cardiovascular: Negative for chest pain, ms3 and palpitations. Respiratory: Negative for shortness of breath, cough, wheezing, and pleuritic chest pain, Abdomen/GI: Negative for abdominal pain, nausea, vomiting, diarrhea, and constipation. 11:06 MS/Extremity: Negative for injury and deformity, Skin: Negative for injury, rash, and discoloration. 11:06 Constitutional: Positive for chills, fever. 11:06 : Positive for testicular pain 11:06 All other systems are negative. Exam: 11:06 Constitutional: This is a well developed, well nourished patient who is awake, alert, ms3 and in no acute distress. Head/Face: Normocephalic, atraumatic. Neck: Trachea midline, no cervical lymphadenopathy. Supple, full range of motion without nuchal rigidity, or vertebral point tenderness. No Meningismus. Chest/axilla: Normal chest wall appearance and motion. Nontender with no deformity. Cardiovascular: Regular rate and rhythm with a normal S1 and S2. No gallops, murmurs, or rubs. Normal PMI, no JVD. No pulse deficits. Respiratory: Lungs have equal breath sounds bilaterally, clear to auscultation and percussion. No rales, rhonchi or wheezes noted. No increased work of breathing, no retractions or nasal flaring. Abdomen/GI: Soft, non-tender, with normal bowel sounds. No distension or tympany. No guarding or rebound. No evidence of tenderness throughout. 11:06 MS/ Extremity: Pulses equal, no cyanosis. Neurovascular intact. Full, normal range of motion. 11:06 : Male external genitalia: swelling: of the left testicle and right testicle is noted, that is moderate, tenderness, of the left testicle and right testicle is noted, that is moderate. 13:44 ECG was reviewed by the Attending Physician. ms3 Vital Signs: 10:53 BP 144 / 98; Pulse 106; Resp 16; Temp 97.9; Pulse Ox 98% on R/A; Weight 95.25 kg; ss Height 5 ft. 5 in. ; Pain 7/10; 12:24 BP 129 / 91; Pulse 91; Resp 16 S; Pulse Ox 99% on R/A; Pain 5/10; kc6 10:53 Body Mass Index 34.95 (95.25 kg, 165.1 cm) ss 10:53 Pain Scale: Adult ss 12:24 Pain Scale: Adult kc6 MDM: 10:53 Patient medically screened. ms3 11:06 Differential diagnosis: Testicular torsion vs Hematoma vs Post op pain vs Hernia. ms3 15:42 Data reviewed: vital signs, nurses notes, lab test result(s), radiologic studies, and ms3 as a result, I will discharge patient. Management of patient was discussed with the following: Subcontract Manager: Dr Faustin. Would like patient discharged on Cipro and Bactrim. Scrotal support, ice.. Historians other than the Patient: EMS: . Counseling: I had a detailed discussion with the patient and/or guardian regarding: the historical points, exam findings, and any diagnostic results supporting the discharge/admit diagnosis, lab results, radiology results, the need for outpatient follow up, to return to the emergency department if symptoms worsen or persist or if there are any questions or concerns that arise at home. Special discussion: I discussed with the patient/guardian in detail that at this point there is no indication for admission to the hospital. It is understood, however, that if the symptoms persist or worsen the patient needs to return immediately for re-evaluation. ED course: Discussed labs, imaging with patient. Patient given scrotal support undergarment. Patient to follow-up with Dr. Faustin. Patient understands and agrees with plan. All questions were answered. Return precautions discussed include fevers, increased pain, increased swelling, any concerns, or worsening of condition. On reevaluation patient is alert and oriented x4, in no apparent distress, nontoxic-appearing, ambulatory in the emergency department. Case was discussed with Dr. Drake of who recommended patient to be discharged on Cipro and Bactrim. He would like patient to have scrotal support, and ice his scrotum.. 03/01 10:54 Order name: CBC with Diff; Complete Time: 11:39 ms3 03/01 10:54 Order name: BMP; Complete Time: 11:39 ms3 03/01 11:47 Order name: Blood Culture Adult (2) ms3 03/01 11:47 Order name: Lactate w/ 2H reflex if indic.; Complete Time: 13:28 ms3 03/01 11:47 Order name: Protime (+inr); Complete Time: 13:28 ms3 03/01 11:47 Order name: Ptt, Activated; Complete Time: 13:28 ms3 03/01 11:47 Order name: Hepatic Function; Complete Time: 13:28 ms3 03/01 10:54 Order name: Scrotum Testicles US; Complete Time: 12:37 ms3 03/01 11:47 Order name: EKG; Complete Time: 11:48 ms3 03/01 11:47 Order name: Accucheck; Complete Time: 11:48 ms3 03/01 11:47 Order name: Cardiac monitoring; Complete Time: 11:48 ms03/01 11:47 Order name: EKG - Nurse/Tech; Complete Time: 12:23 ms3 03/01 11:47 Order name: IV Saline Lock - Large Bore; Complete Time: 11:48 ms3 03/01 11:47 Order name: Labs collected and sent; Complete Time: 12:23 ms3 03/01 11:47 Order name: O2 Per Protocol; Complete Time: 11:48 ms3 03/01 11:47 Order name: O2 Sat Monitoring; Complete Time: 11:48 ms3 03/01 11:47 Order name: Vital Signs; Complete Time: 11:48 ms3 EC:44 Rate is 94 beats/min. Rhythm is regular. QRS [place] is Normal. [place] interval is normal. QRS ms3 interval is normal. Clinical impression: NSR w/ Non-specific ST/T Changes. Interpreted by me. Reviewed by me. Administered Medications: 12:23 Drug: NS 0.9% IV 1000 ml Route: IV; Rate: 1000 ml; Site: left antecubital; kc6 Disposition: 15:45 Chart complete. ms3 Disposition Summary: 03/01/23 13:29 Discharge Ordered Location: Home ms3 Condition: Stable ms3 Diagnosis - Left testicular pain ms3 - Scrotal swelling ms3 - Scrotal contusion ms3 Followup: ms3 - With: Lencho Faustin MD - When: 2 - 3 days - Reason: Recheck today's complaints Discharge Instructions: - Discharge Summary Sheet ms3 - Scrotal Hematoma ms3 - Scrotal Swelling ms3 Forms: - Medication Reconciliation Form ms3 - Thank You Letter ms3 - Antibiotic Education ms3 - Prescription Opioid Use ms3 - Patient Portal Instructions.htm ms3 Prescriptions: - Cipro 500 mg Oral Tablet - take 1 tablet by ORAL route every 12 hours for 10 days; 20 tablet; Refills: 0, ms3 Product Selection Permitted - Bactrim DS 800-160 mg Oral Tablet - take 1 tablet by ORAL route every 12 hours for 10 days; 20 tablet; Refills: 0, ms3 Product Selection Permitted Signatures: Dispatcher [employer] Estee Rodriguez, RN RN Hunter Wells DO DO ms3 Adriane Ni RN RN kc6
[2023-03-01 15:05] VITALS: BP 144/98; TEMP 97.9; O2SAT 98
--- NOTE | 2023-03-01 20:19 | EKG ---
Test Date: 2023-03-01 Test Time: 12:06:53 Spring Machine Operator: REBECCA MEASUREMENT RESULTS: Intervals: Rate: 94 WV: 162 QRSD: 80 QT: 326 QTc: 407 [place]: P: 29 WV: 162 QRS: 64 T: 41 INTERPRETIVE STATEMENTS: Normal sinus rhythm Nonspecific T wave abnormality Abnormal ECG No previous ECG available for comparison Electronically Signed On 03-01-23 20:18:20 CDT by Freddy Walker
== END 2023-03-01 14:19 | disposition home or self-care (01) ==
LOC: ER 10:50
DX: S30.22XA Contusion of scrotum and testes, initial encounter (principal); N50.89 Other specified disorders of the male genital organs; Z98.890 Other specified postprocedural states; F17.210 Nicotine dependence, cigarettes, uncomplicated
CPT/HCPCS: 93005; 87040; 85025; 80048; 36415; 85610; 80076; 83605; 85730; 76870; 99284; J7030